=== PATIENT | female | born 1965 | race Caucasian/White ===

== ENCOUNTER → 2022-01-06 12:08 | Outpatient (CLI) | payer BC, SELFPAY ==
--- NOTE | 2022-01-06 12:24 | ECG_ITS ---
APPROVED REPORT Exam: Resting ECG HR:67 bpm ECG Measurements Heart Rate 67 AXES MI 144 P 47 QRSd 101 QRS -1 QT 413 T 50 QTc 428 Conclusion SINUS RHYTHM WITH FREQUENT VENTRICULAR PREMATURE COMPLEXES ABNORMAL RHYTHM ECG UNCONFIRMED REPORT Electronically signed by : Britton Mixon MD 01/09/2022 16:02:34
== END ==
PROVIDERS: PCP Family Medicine; Visit Provider Specialist
DX: R42 Dizziness and giddiness (principal); I49.9 Cardiac arrhythmia, unspecified; R55 Syncope and collapse
CPT/HCPCS: 93005; 93270

== ENCOUNTER → 2022-01-23 12:54 | Outpatient (CLI) | payer BC, SELFPAY ==
--- NOTE | 2022-01-23 13:14 | CA_ITS ---
FINAL REPORT TECHNIQUE: Color Doppler, duplex Doppler and garcia scale sonography of the bilateral neck arterial vasculature was performed. Velocities were measured in the carotid arteries. Stenosis evaluation based on the validated velocity criteria. CLINICAL HISTORY: Vertigo, Cardiac arrhythmia, Dizziness FINDINGS: The peak systolic velocity of the right common carotid artery is 73 cm/s. The peak systolic velocity of the right internal carotid artery is 106 cm/s and end diastolic velocity 42 cm/s. The ICA/CCA ratio is 1.45. A small amount of plaque is present. The right external carotid artery is patent. The right vertebral artery is patent with antegrade flow. The peak systolic velocity of the left common carotid artery is 80 cm/s. The peak systolic velocity of the left internal carotid artery is 100 cm/s and end diastolic velocity 46 cm/s. The ICA/CCA ratio is 1.58. A small amount of plaque is present. The left external carotid artery is patent.The left vertebral artery is patent with antegrade flow. IMPRESSION: Less than 50% bilateral carotid stenoses. Bilateral patent vertebral arteries with antegrade flow. If indicated, CTA or MRA could further evaluate. Reviewed, Interpreted and Dictated by Jorge De Leon MD Transcribed by Woodrow Montelongo Authenticated and [facility]
[2022-01-23 13:22] LABS: Blood Urea Nitrogen 14 mg/dl (7-17); Estimated Glomerular Filt Rate 86 ml/min (>60); GFR (African American) 104 ML/MIN (>60)
--- NOTE | 2022-01-23 13:44 | CT_ITS ---
FINAL REPORT CLINICAL HISTORY: . DIZZINESS, VERTIGO FINDINGS: Axial imaging of the head was obtained without contrast. A subsequent CTA was performed. This study was performed with techniques to keep radiation doses as low as reasonably achievable, (ALARA). Individualized dose reduction techniques using automated exposure control or adjustment of mA and/or kV according to the patient's size were employed. The ventricles are normal in size. There is no evidence of hemorrhage. No masses are identified. No extra-axial fluid is seen. The sinuses are normal. There is no acute osseous abnormality. The distal vertebral, basilar and distal internal carotid arteries have an unremarkable appearance. No aneurysm is seen. Major intracranial vessels are patent without significant stenosis. IMPRESSION: No acute intracranial process. No stenosis or aneurysm. Reviewed, Interpreted and Dictated by Jorge De Leon MD Transcribed by Woodrow Montelongo Authenticated and [facility]
== END ==
PROVIDERS: PCP Family Medicine; Visit Provider Specialist
DX: R42 Dizziness and giddiness (principal); H93.A9 Pulsatile tinnitus, unspecified ear
CPT/HCPCS: 36415; 70496; 82565; 84520; 93880; Q9967

== ENCOUNTER → 2022-02-14 11:18 | Outpatient (CLI) | payer BC, SELFPAY ==
--- NOTE | 2022-02-14 | CA_ITS ---
APPROVED REPORT Exam: Pharmacologic Technologist: Isaura Núñez, Ht: 5 ft 5 in Wt: 190 lbs BSA: 1.94 m2 HR: 59 bpm BP: 157/89 mmHg Rhythm: SR with PVCs Medical History Medical History: HTN, Hyperlipidemia Medications: Lisinopril,,,,, Omeprazole,,,,, Levothyroxine,,,,, Estradial,,,,, Diclofenac,,,,, DicyCLOMINE,,,,, Cyclobenzaprine,,,,, TopAMAX,,,,, Toprol XL,,,,, NYstatin,,,,, RoSovastatin,,,,, DiTROPAN xl,,,,, Cardiac Risk Factors: HTN, Hyperlipidemia, FHX of CAD Stress Test Details Test: LEXISCAN HR Resting HR: 76 bpm Max Heart Rate (APMHR): 163.552644 bpm Max HR Achieved: 113 bpm Target HR (85% APMHR): 138.205554 bpm % of APMHR: 69.33 Recovery HR: 80 bpm BP Resting BP: 157/89 mmHg Max BP: 178/85 mmHg Recovery BP: 176.0/92.0 mmHg ECG Resting ECG: SR with PVCs Clinical Exercise duration: 04:00 min Highest Stage Achieved: Exercise capacity: 1.0 METs Stress ECG Conclusion During lexiscan pt experinced CP, SOA, and nausea. PVCs before and during lexiscan. <1.5mm ST segment depression. Test Summary REST . . . . . . . Sitting REST 10:57 . . 76 . 157/ 89 . . Stage 1 . . . . . . . Cardiolite injected Stage 1 01:00 . . 109 . . . . Stage 2 01:00 . . 97 . 172/ 99 . . Stage 3 01:00 . . 95 . 169/ 94 . . Stage 4 01:00 . . 97 . 178/ 85 . Stop exercise at 04:00 RECOVERY 01:00 . . 85 . . . . RECOVERY 02:00 . . 87 . 176/ 92 . . RECOVERY 03:00 . . 78 . 155/ 97 . . RECOVERY 03:44 . . 76 . 158/ 92 . . Electronically signed by : Luis Ruvalcaba MD 02/15/2022 12:38:51
--- NOTE | 2022-02-14 11:22 | NM_ITS ---
APPROVED REPORT Exam: Nuclear Stress Test Indication: chest pain..short of breath..palpitations Patient Location: Outpatient Stress Tech: Isaura ROMERO Tech:FREDDIE Cote RT(R)(N) Ht: 5 ft 5 in Wt: 185 lbs Bra Size: DDD HR: 76 bpm BP: 157/89 mmHg BSA: 1.91 m2 TID: 1.20 BMI: 30.7 History: chest pain..short of breath..palpitations Procedure: Patient received a 0.4 mg of intravenous Lexiscan, resting heart rate 76 bpm, resting blood pressure 157/89 mmHg, with Lexiscan maximum heart rate achived was 113 bpm which is Less than 85 % of the maximum predicted heart rate and blood pressure was 178/85 mmHg. With Lexiscan, patient denied any complaint of chest pain. The patient was unable to lay on her belly for prone images. Electrocardiogram Sting electrocardiogram showed sinus rhythm, with Lexiscan there is less than 1.[address] segment depression noted from the baseline EKG. The EKG portion of the Lexiscan is nondiagnostic. Cardiac Stress and Resting SPECT Images: Cardiac Stress and Resting SPECT images were obtained using technetium 99m Myoview 32.3 mCi stress and 10.10 mCi at rest. Gated SPECT for analysis of segmental wall motion and calculation of the ejection fraction also done. Cardiac stress and rest SPECT show uniform myocardial activity without segmental perfusion abnormality, computer derived ejection fraction is 52% with no regional wall motion abnormality, right ventricle is normal size and contractility. Conclusion: 1. The EKG portion of the Lexiscan is nondiagnostic. 2. No scintigraphic evidence of reversible ischemia seen, computer derived ejection fraction is 52% with no regional wall motion abnormality, right ventricle is normal size and contractility. 3. Normal Lexiscan Myoview study. Electronically signed by : Luis Ruvalcaba MD 02/15/2022 12:41:45
== END ==
PROVIDERS: PCP Specialist; Visit Provider Nurse Practitioner Family
DX: R07.89 Other chest pain (principal); R42 Dizziness and giddiness; R00.2 Palpitations; R00.1 Bradycardia, unspecified; I34.0 Nonrheumatic mitral (valve) insufficiency; I49.3 Ventricular premature depolarization; I65.23 Occlusion and stenosis of bilateral carotid arteries
CPT/HCPCS: 78452; 93017; A9502; J2785

== ENCOUNTER 2023-06-12 07:10 | Day surgery (SDC) | payer BC, SELFPAY ==
[2023-06-12] VITALS (8 sets, daily range): BP systolic 129–182; BP diastolic 49–98; PULSE 50–66; RESP 16–20; O2SAT 97–100; BMI 30.9; BMI 31.4
--- NOTE | 2023-06-12 07:10 | CT_ITS ---
APPROVED REPORT Credit Collection Specialist: CLINICAL INDICATION Chest Pain TECHNIQUE Image Acquisition: A 128 slice MDCT scanner (SkyTecha View) was used for data acquisition. A noncontrast coronary calcium scan was performed. A CT attenuation threshold of 130 Hounsfield units (HU) was used for the detection of calcium in contiguous voxels of 1 sq mm in area to be counted as individual lesions. Bolus tracking in the ascending aorta with a threshold of 180 HU was performed. Immediately afterwards, ECG synchronized cardiac CT was then performed from the cardiac base to apex using retrospective gating with ECG tube current modulation. A total of 85 mL of Isovue 370 mg/mL contrast medium was administered at 5 mL/sec followed by a saline flush using a biphasic injection protocol. A tube voltage of 120 KVp was used. The patient received the following medications prior to the cardiac CT. 75 mg of oral metoprolol 15 mg of oral ivabradine 0.8 mg of sublingual nitroglycerin The average heart rate at the time of acquisition was 59 bpm and regular. Image Reconstruction Transaxial images were reconstructed at 0.67 mm slide thickness. Data was reviewed interactively on an advanced workstation capable of 2 and 3-dimensional displays in all conventional reconstruction formats, including multiplanar reformations, maximum intensity projections, curved multiplanar reformations, and volume rendered reconstructions. When applicable, selected routine images describing the relevant coronary anatomy and pathology were saved and sent to PACS. Complications None Technical Quality Overall image quality was good. Coronary artery opacification was adequate. Total DLP (Dose-Length Product) is 1188.4 mGy-cm. The reported value represents the total of one or more individual components during the CT acquisition of this date and at this time, and as such, the same value may appear in more than one CT report depending on the interpreting/reporting physicians. COMPARISON None FINDINGS CT Coronary Calcium Scoring LMA (Left Main Artery) = 3 LAD (Left Anterior Descending) = 0 LCX (Left Coronary Circumflex) = 0 RCA (Right Coronary Artery) = 0 Total Calcium Score = 3 using the AJ-130 method. The observed calcium score of 3 is at 71st percentile for subjects of the same age, sex, and race/ethnicity. The interpretation of the calcium heart score is based on the following continuum*: 0 = no calcified plaque detected (risk of coronary artery disease is very low ??? less than 5%) 1-10 = calcium detected in extremely minimal levels (risk of coronary diseases is still low ??? less than 10%) 11-100 = mild levels of plaque detected with certainty (mild or minimal narrowing of heart arteries is likely) 101-400 = definite,at least moderate levels of plaque detected (relatively high risk of a heart attack within 3-5 years) >401-999 = extensive levels of plaque detected (high risk of heart attack, high levels of vascular disease are present, high likelihood of at least one significant coronary narrowing) *The calcium heart score quantifies the burden of coronary calcification/plaque in the coronary arteries. The calcium heart score is not able to evaluate the presence or burden of non-calcified (i.e. soft) plaque. There is no identifiable calcification in the aortic valve, mitral annulus or mitral valve, pericardium, or myocardium. Coronary CT Angiography The coronary arterial system is left dominant. Quantitative Stenosis Grading: Left Main (LM): The left main originates normally from the left sinus of Valsalva. The LM trifurcates into the left anterior descending artery, ramus intermedius, and left circumflex artery. There is a 1 focus of calcification in the distal LM, but with no evidence of luminal stenosis. Left Anterior Descending (LAD) and Diagonal Branches: The LAD gives off 2 diagonal branch(es). The LAD and its branches are patent with no evidence of atherosclerosis. There is no evidence of LAD-myocardial bridge. Ramus-intermedius (RI): The RI is patent. Left Circumflex (LCX) and Obtuse Marginals (OM): The LCX gives off 2 Obtuse Marginal (OM) branches. The LCX and its branches are patent with no evidence of atherosclerosis. Right Coronary Artery (RCA): The RCA originates normally from the right sinus of Valsalva. The RCA and its branches are patent with no evidence of atherosclerosis. Non-Coronary Cardiac Findings: Analysis of the left ventricular (LV) structure and function was performed after 3-D reconstruction of the LV from axial images, with user-corrected automatic contouring for assessment of LV volumes and user-defined reconstruction from oblique planes for measurement of 3-D cardiac structure and function. -The left ventricle systolic function is normal (LVEF 54 %) -There is no left atrial appendage filling defect. Two right pulmonary veins and two left pulmonary veins drain normally into the left atrium. -No pericardial thickening or calcification. -Central and branch pulmonary arteries in the [id number] are unremarkable. -Thoracic aorta within the visualized thoracic aortic-branches in the [id number] is unremarkable. Extracardiac Structures No significant extra-cardiac findings. Note, however, that this study is focused on the cardiac findings. IMPRESSION -Minimal coronary calcification with an Agatston score = 3 using the AJ-130 method. -The observed calcium score of 3 is at 71st percentile for subjects of the same age, sex, and race/ethnicity. -No evidence of significant flow-limiting atherosclerosis of the coronary arteries. -CAD-RADS 1. Management recommendations per ACC/AHA guidelines*, as clinically appropriate. *Recommendations: CAD RADS 0: Reassurance. Consider non-atherosclerotic causes of chest pain. CAD RADS 1: Consider non-atherosclerotic causes of chest pain. Consider preventive therapy and risk factor modification. CAD RADS 2: Consider non-atherosclerotic causes of chest pain. Consider preventive therapy and risk factor modification, particularly for patients with nonobstructive plaque in multiple segments. CAD RADS 3: Consider further functional testing. Consider symptom-guided anti-ischemic and preventive pharmacotherapy as well as risk factor modification per published guideline statements. CAD RADS 4A: Consider further functional testing or invasive coronary angiography with revascularization per published guideline statements. Consider symptom-guided anti-ischemic and preventive pharmacotherapy as well as risk factor modification per published guideline statements. CAD RADS 4B: Invasive coronary angiography recommended with revascularization per published guideline statements. Consider symptom-guided anti-ischemic and preventive pharmacotherapy as well as risk factor modification per published guideline statements. CAD RADS 5: Consider invasive angiography and/or viability assessment with revascularization per published guideline statements. Consider symptom-guided anti-ischemic and preventive pharmacotherapy as well as risk factor modification per published guideline statements. CRITICAL RESULT None COMMUNICATION Per this written report The coronary and cardiac findings of this CCTA were reviewed, reported, and signed by Asaf Siu MD (Benefits Consultant) Conclusion Electronically signed by : Brooke Siu MD 06/15/2023 16:31:57
[2023-06-12] MEDS: IVABRADINE HCL 7.5MG TABLET 15 MG PO (07:36)
[2023-06-12] MEDS: METOPROLOL TARTRATE 50MG TABLET PO (07:37)
[2023-06-12 07:51] LABS: Anion Gap 11.9 mEq/L (5-15); Blood Urea Nitrogen 14 mg/dl (7-17); Calcium 9.6 mg/dl (8.4-10.2); Carbon Dioxide 25 mmol/L (22.0-30.0); Chloride 108 mmol/L (98-107); Creatinine Clearance Estimated 102 mL/min (50-200); Estimated Glomerular Filt Rate 74 ml/min (>60); GFR (African American) 89 ML/MIN (>60); Glucose 98 mg/dl (74-100); Potassium 3.9 mmoL/L (3.5-5.1); Sodium 141 mmol/L (136-145)
[2023-06-12] MEDS: NITROGLYCERIN 0.4MG SL TABLET SL (08:36)
--- NOTE | 2023-06-12 08:39 | CA_ITS ---
APPROVED REPORT EXAM: Comprehensive 2D, Doppler, and color-flow Echocardiogram In Store Marketing Representative: Steff Ramos CRT Ht: 5 ft 5 in Wt: 184lbs BSA: 1.91 BP: 156/98 mmHg Indications: Chest Pain, Shortness of Breath, Syncope, Palpitations, Hyperlipidemia, Hypertension/HDD 2D Dimensions Left Atrium 3.87 cm LVEF (Mast's) 56.00 % LVOT 1.95 cm (M/F) 1.5-2.5 LV Volume 101.00 mL LA Volume 38.60 mL LA Volume Index 20.20 mL/m2 (M/F) 16-34 EF AP4 55.40 % EF AP2 54.1 % EF BP 56.0 % GL Strain -17.2 % M-Mode Dimensions RVDd 2.58 cm (0.9-2.6) LVDd 5.02 cm (3.5-5.7) Ao Diam 3.82 cm (2.0-3.7) LVDs 3.42 cm (3.5-5.7) IVSd 1.62 cm (0.6-1.1) PWd 0.43 cm (0.6-1.1) EF (Teich) 59.70% FS 31.90% EDV (Teich) 119.30 mL TAPSE 2.86 (<1.7) ESV (Teich) 48.10 mL LV Diastology E Decel Time 150 (160-240 msec) E/A Ratio 2.46 MED E' 6.7 (>= 7 cm/sec) MED A' 10.90 cm/s E'/MED E' Ratio 10.30 (<= 14) LAT E' 9.3 (>= 10 cm/sec) LAT A' 12.40 cm/s E/LAT E' Ratio 7.42 (<= 14) Aortic Valve AoV Peak Braulio. 144.0 (50-130 cm/s) AO Peak GR. 8.30 mmHg Mitral Valve MV E Max Braulio. 69.0 (40-130 cm/s) MV A Velocity 28.0 (40-130 cm/s) E/A Ratio 2.46 MV Decel. Time 150 (160-240 ms) Tricuspid Valve TR P. Velocity 201.00 cm/s RAP Estimate 10.00 mmHg RVSP 26.20 mmHg Left Ventricle The left ventricle is normal size. The left ventricular systolic function is normal. The left ventricular ejection fraction is within the normal range. There is normal left ventricular wall thickness. There is normal LV segmental wall motion. The left ventricular diastolic function is normal. LVEF is 55%. Right Ventricle The right ventricle is normal size. The right ventricular systolic function is normal. Atria The left atrium size is normal. The right atrium size is normal. There is no Doppler evidence of interatrial shunt. Aortic Valve The aortic valve is mildly thickened. There is no aortic valvular stenosis. Trace aortic regurgitation. Mitral Valve The mitral valve leaflets are mildly thickened. No evidence of mitral valve stenosis. Trace mitral regurgitation. Tricuspid Valve The tricuspid valve leaflets are thin and pliable. Mild tricuspid regurgitation. RVSP is 15-20 mmHg. Pulmonic Valve The pulmonary valve is normal in structure. Trace pulmonic regurgitation. Great Vessels The aortic root is normal in size. The ascending aorta is normal in size. IVC is normal in size and collapses >50% with inspiration. Pericardium There is no pericardial effusion. Other Information Study Quality: Fair Conclusion Normal biventricular systolic function. Mild TR. Electronically signed by : Brooke Siu MD 06/16/2023 22:55:00
[2023-06-12] MEDS: METOPROLOL TARTRATE 5MG/5ML VIAL 5 MG IV (08:45)
[2023-06-12] MEDS: 0.9 % SODIUM CHLORIDE 50 ML VIAL IV (08:48)
[2023-06-12] MEDS: IOPAMIDOL-370 (76%);100ML BOTTLE 85 ML IV (08:49)
--- NOTE | 2023-06-12 12:25 | P.PCN_ITS ---
[facility] Loop Recorder Date: 06/12/23 Time: 12:25 Procedure Performed:: Implantation of loop recorder Indication:: Syncope Technique:: Patient was brought to the cardiac Mens Locker Room Attendant. After informed consent obtained, 1% lidocaine with epinephrine was used to anesthetize the site along the left anterior aspect of the chest near the sternal border. Using the preformed scalpel, an incision was made and using the supplied preloaded apparatus, the loop recorder was placed subcutaneously without difficulty. Following the deployment of the loop recorder interrogation of the device was performed to ensure appropriate voltage was being detected. Once this was verified, Steri- Strips were placed over the incision and the patient was prepped to discharge home. Patient tolerated the procedure well with minimal discomfort. Impression:: Successful implantation of loop recorder Serial Number:: Flypa[employer]-IQ EL plus Model number [id number] Serial #[id number] Plan:: Routine postop care
== END 2023-06-12 11:48 | disposition home or self-care (01) ==
PROVIDERS: Internal Medicine; PCP Family Medicine; Visit Provider Nurse Practitioner Family
DX: I65.23 Occlusion and stenosis of bilateral carotid arteries (principal); I10 Essential (primary) hypertension; I34.0 Nonrheumatic mitral (valve) insufficiency; E78.5 Hyperlipidemia, unspecified; R55 Syncope and collapse; R42 Dizziness and giddiness; R07.9 Chest pain, unspecified; R00.2 Palpitations; I49.3 Ventricular premature depolarization
CPT/HCPCS: 33285; 75571; 75574; 80048; 93306; C1764; Q9967

== ENCOUNTER 2024-02-05 07:37 | Day surgery (SDC) | payer BC, SELFPAY ==
[2024-02-05 07:40] VITALS: BMI 25.0
[2024-02-05 08:08] VITALS: BP 104/68; PULSE 81; PULSE 89; RESP 20; O2SAT 95
[2024-02-05] MEDS: LIDOCAINE 2% W/EPI 1:100,000 20ML VIAL 20 ML SUBCUT (09:03)
[2024-02-05] MEDS: CEFAZOLIN SODIUM 1 GM in 0.9 % SODIUM CHLORIDE 50 ML IV (09:04)
[2024-02-05 09:40] VITALS: BP 108/65; PULSE 90; RESP 18; O2SAT 99
--- NOTE | 2024-02-09 15:24 | P.PCN_ITS ---
[facility] Procedure Note Date: 02/05/24 Time: 09:22 Procedure Note:: Implantable loop recorder removal due to infection. Patient was brought to the cardiac Machine Trimmer as an outpatient.? After informed consent obtained, lidocaine was used to anesthetize the area over the loop recorder and a surgical scalpel was used to incise down to the loop recorder.? Using forceps the loop recorder was removed without complications.? The incision was closed with surgical adhesive and covered with Steri-Strips and a pressure dressing.? Patient tolerated procedure without complications.? Routine postop care recommended.
== END 2024-02-05 09:45 | disposition home or self-care (01) ==
PROVIDERS: PCP Family Medicine; Visit Provider Internal Medicine
DX: T82.7XXA Infection and inflammatory reaction due to other cardiac and vascular devices, implants and grafts, initial encounter (principal); L08.89 Other specified local infections of the skin and subcutaneous tissue; Z45.09 Encounter for adjustment and management of other cardiac device; I65.23 Occlusion and stenosis of bilateral carotid arteries; I34.0 Nonrheumatic mitral (valve) insufficiency; I10 Essential (primary) hypertension; Z79.899 Other long term (current) drug therapy; Y71.0 Diagnostic and monitoring cardiovascular devices associated with adverse incidents
CPT/HCPCS: 33286; J0690